=== PATIENT | male | born 1985 | race Caucasian/White ===

== ENCOUNTER 2017-10-28 11:24 | Emergency (ER) | payer MEDICAID, OTHER ==
[2017-10-28 11:50] VITALS: BP 99/70
--- NOTE | 2017-10-28 11:59 | UC ---
Hand/Wrist HPI - HPI Summary HPI Summary: Pt c/o gradual onset of right hand pain and swelling that began 2 days ago. Pt states that he began new job and is using his hands more than ever and throwing bundles of papers all day. Pt began new job 4 days aog, pain began 2 days ago. - History Of Current Complaint Chief Complaint: UCTrauma Stated Complaint: RIGHT HAND COMPLAINT Time Seen by Provider: 10/28/17 11:46 Hx Obtained From: Patient ?: No Onset/Duration: Gradual Onset, Lasting Days, Still Present Severity Initially: Mild Severity Currently: Moderate Pain Intensity: 7 Character Of Pain: Dull, Aching, Stiffness Aggravating Factor(s): Movement Alleviating Factor(s): Rest Associated Signs And Symptoms: Positive: Swelling Related History: Dominant Hand Right - Risk Factors Compartment Syndrome Risk Factors: Pain - Allergies/Home Medications Allergies/Adverse Reactions: Allergies Allergy/AdvReac Type Severity Reaction Status Date / Time Penicillins Allergy Severe Anaphylatic Verified 10/28/17 11:51 Shock PMH/Surg Hx/FS Hx/Imm Hx Previously Healthy: Yes - Surgical History Surgical History: None - Family History Known Family History: Positive: Cardiac Disease - Social History Occupation: Employed Full-time Lives: With Family Alcohol Use: Rare Substance Use Type: None Smoking Status (MU): Heavy Every Day Tobacco Smoker Have You Smoked in the Last Year: Yes Household Exposure Type: Cigarettes Review of Systems Constitutional: Negative Skin: Negative Eyes: Negative ENT: Negative Respiratory: Negative Cardiovascular: Negative Gastrointestinal: Negative Genitourinary: Negative Motor: Decreased ROM - pain with ROM Neurovascular: Negative Musculoskeletal: Arthralgia, Edema - right hand metacarpophalangeal, 2&3, Myalgia Neurological: Negative Psychological: Negative Is Patient Immunocompromised?: No All Other Systems Reviewed And Are Negative: Yes Physical Exam Triage Information Reviewed: Yes Appearance: Well-Appearing Vital Signs: Initial Vital Signs Temp 98.1 F 10/28/17 11:46 Pulse 65 10/28/17 11:46 Resp 18 10/28/17 11:46 BP 99/70 10/28/17 11:46 Pulse Ox 100 10/28/17 11:46 Vital Signs Reviewed: Yes Eye Exam: Normal ENT Exam: Normal ENT: Positive: Hearing grossly normal Respiratory: Positive: No respiratory distress Musculoskeletal Exam: Other Musculoskeletal: Positive: ROM Limited @ - c/o pain with ROM at metacarpophalangeal 2&3, Edema @ - metacarpophalangeal, 2& 3m Neurological Exam: Normal Psychological Exam: Normal Skin Exam: Normal Hand/Wrist Course/Dx - Differential Dx/Diagnosis Differential Diagnosis/HQI/PQRI: Sprain, Strain, Tendonitis Provider Diagnoses: tendonitis right hand Discharge - Sign-Out/Discharge Documenting (check all that apply): Discharge/Admit/Transfer - Discharge Plan Condition: Stable Disposition: HOME Prescriptions: Ibuprofen TAB* [Motrin TAB* 800 MG] 800 mg PO Q8H PRN #15 tab PRN Reason: Pain Patient Education Materials: Tendinitis (ED), R.I.C.E. Treatment (ED) Forms: *Work Release Referrals: No Primary Care Phys,NOPCP [Primary Care Provider] - [facility] [Outside] - If Needed [facility] [Outside] - If Needed - Billing Disposition and Condition Condition: STABLE Disposition: HOME
== END 2017-10-28 12:13 | disposition home or self-care (01) ==
LOC: UCCORT 11:24
DX: M77.9 Enthesopathy, unspecified (principal); Z88.0 Allergy status to penicillin; F17.210 Nicotine dependence, cigarettes, uncomplicated
CPT/HCPCS: 99203; G0463

== ENCOUNTER 2019-01-26 18:44 | Emergency (ER) | payer OTHER ==
[2019-01-26 18:59] VITALS: BP 108/60
--- NOTE | 2019-01-26 19:10 | UC ---
Hand/Wrist HPI - HPI Summary HPI Summary: 33-year-old male who injured his left wrist years ago. He recently started a job which requires repetitive motion over the past month he has had increasing left wrist pain. He denies any specific injury. - History Of Current Complaint Chief Complaint: UCUpperExtremity Stated Complaint: LT WRIST PAIN Time Seen by Provider: 01/26/19 19:02 Hx Obtained From: Patient ?: No Onset/Duration: Gradual Onset Severity Initially: Mild Severity Currently: Moderate Pain Intensity: 10 Character Of Pain: Dull, Aching Aggravating Factor(s): Flexion, Extension Alleviating Factor(s): Rest Associated Signs And Symptoms: Positive: Negative Related History: Dominant Hand Right - Allergies/Home Medications Allergies/Adverse Reactions: Allergies Allergy/AdvReac Type Severity Reaction Status Date / Time Penicillins Allergy Severe Anaphylatic Verified 01/26/19 18:50 Shock coconut oil Allergy Swelling Verified 01/26/19 18:50 Of Face,Lips,& Throat Home Medications: Home Medications Acetaminophen [Tylenol Extra Strength] 500 mg PO Q6H PRN 01/26/19 [History Confirmed 01/26/19] Aspirin TAB* [Aspirin 325 MG TAB*] 650 mg PO Q6H PRN 01/26/19 [History Confirmed 01/26/19] Ibuprofen TAB* [Advil TAB*] 600 mg PO Q6H PRN 01/26/19 [History Confirmed ] PMH/Surg Hx/FS Hx/Imm Hx Previously Healthy: Yes - Surgical History Surgical History: Yes Surgery Procedure, Year, and Place: low back sx. right knee sx with hardware placement - Family History Known Family History: Positive: Cardiac Disease - Social History Alcohol Use: Rare Substance Use Type: Marijuana Smoking Status (MU): Heavy Every Day Tobacco Smoker Type: Cigarettes Amount Used/How Often: 1.5 ppd Length of Time of Smoking/Using Tobacco: 13 yrs Have You Smoked in the Last Year: Yes Household Exposure Type: Cigarettes Review of Systems All Other Systems Reviewed And Are Negative: Yes Motor: Positive: Negative Neurovascular: Positive: Negative Musculoskeletal: Positive: Other: - Pain left wrist with movement. Is Patient Immunocompromised?: No Physical Exam Triage Information Reviewed: Yes Appearance: Well-Appearing, No Pain Distress, Well-Nourished Vital Signs: Initial Vital Signs Temp 97.8 F 01/26/19 18:53 Pulse 76 01/26/19 18:53 Resp 18 01/26/19 18:53 BP 108/60 01/26/19 18:53 Pulse Ox 99 01/26/19 18:53 Vital Signs Reviewed: Yes Musculoskeletal: Positive: Strength Intact, ROM Intact, No Edema, Other: - Patient has tenderness around the left wrist. No deformity, erythema, bruising or swelling is noted. Good range of motion but with pain. Neurological: Positive: Alert, Muscle Tone Normal - Good peripheral pulses neuro sensation and capillary refill. Psychological Exam: Normal Skin Exam: Normal Hand/Wrist Course/Dx - Course Course Of Treatment: I believe this is a repetitive motion tendinitis. The patient is given a cock- up splint. He can take Motrin every 8 hours for pain. He's elevate as much as possible. He was given a note for work to do light duty over the next week without any repetitive motion of his left hand. He is to follow-up with the orthopedist if no improvement in 4 or 5 days. - Differential Dx/Diagnosis Provider Diagnosis: Tendonitis of wrist, left Discharge - Sign-Out/Discharge Documenting (check all that apply): Patient Departure All imaging exams completed and their final reports reviewed: No Studies - Discharge Plan Condition: Good Disposition: HOME Prescriptions: Ibuprofen TAB* [Motrin TAB* 600 MG] 600 mg PO Q8H PRN #21 tab PRN Reason: Pain - Mild Patient Education Materials: Tendinitis (ED) Forms: *Work Release Referrals: [facility] [Outside] Fay Mcallister MD [Medical Doctor] - No Primary Care Phys,NOPCP [Primary Care Provider] - Additional Instructions: Apply heat to the sore area as much as possible, take Motrin every 8 hours for pain, take the Motrin with food. Follow-up with an orthopedist if no improvement in 4 or 5 days. Light-duty work for one week. Avoid repetitive motion. - Billing Disposition and Condition Condition: GOOD Disposition: Home
== END 2019-01-26 19:30 | disposition home or self-care (01) ==
LOC: UCCORT 18:44
DX: M77.9 Enthesopathy, unspecified (principal); F17.210 Nicotine dependence, cigarettes, uncomplicated
CPT/HCPCS: 99213; G0463